=== PATIENT | male | born 1940 | race Caucasian/White ===

== ENCOUNTER 2016-09-09 13:38 | Observation (INO) | payer MEDICARE ==
[2016-09-09] MEDS ORDERED: Aspirin Low Dose CHEW TAB* 81 MG PO ONE (17:21)
--- NOTE | 2016-09-09 18:11 | RAD ---
INDICATION: Chest pain COMPARISON: September 07, 2007 TECHNIQUE: An AP portable view obtained at 1732 hours is submitted. FINDINGS: Bones/Soft Tissues: There are no acute bony findings. Cardiomediastinal: The cardiomediastinal silhouette is normal. Lungs: There are no infiltrates. Pleura: There are no pleural effusions. Other: None IMPRESSION: NO ACTIVE DISEASE.
[2016-09-09 18:23] LABS: Hematocrit 43 % (42-52); Hemoglobin 14.9 g/dl (14.0-18.0); Mean Corpuscular HGB Conc 35 g/dl (31-36); Mean Corpuscular Hemoglobin 32 pg (27-31); Mean Corpuscular Volume 92 fL (80-94); Mean Platelet Volume 7 um3 (7.4-10.4); Red Blood Count 4.64 10^6/ul (4.0-5.4); Red Cell Distribution Width 13 % (10.5-15)
[2016-09-09 18:45] LABS: Albumin 4.4 g/dL (3.2-5.2); BUN/Creatinine Ratio 18.4 (8-20); Calcium 9.7 mg/dL (8.6-10.3); EGFR African American 95.9 (>60); EGFR Non-African American 74.6 (>60); Globulin 2.4 g/dL (2-4); Potassium 4.3 mmol/L (3.5-5.0); Total Bilirubin 0.7 mg/dL (0.2-1.0); Total Protein 6.8 g/dL (6.4-8.9)
[2016-09-09] MEDS ORDERED: Acetaminophen TAB* 325 MG PO PRN (19:45)
[2016-09-09] MEDS ORDERED: Ondansetron INJ* 2 MG/ML VIAL IV PRN (19:45)
[2016-09-09] MEDS ORDERED: Atorvastatin* 20 MG TAB PO SCH (21:00)
[2016-09-09] MEDS: Heparin VIAL(*) 5000 UNITS/ML VIAL (FIVE THOUSAND) SUBCUT SCH (22:04)
--- NOTE | 2016-09-09 23:36 | HP ---
HISTORY AND PHYSICAL: DATE OF ADMISSION: 09/09/16 PRIMARY CARE PROVIDER: Dr. Ramirez. MY ATTENDING PHYSICIAN WHILE IN THE HOSPITAL: Dr. Tejinder Gottlieb * (report dictated by Adolfo Escobedo NP). CHIEF COMPLAINT: Chest pain. HISTORY OF PRESENT ILLNESS: Mr. Toney is a 76-year-old male patient who comes into the ER today stated that last month or so, he has been shoveling snow and he noticed that he has had chest discomfort on the left side. He thought it was musculoskeletal but what had happened again today when he was shoveling his driveway. He did not have any associated diaphoresis, nausea, or any shortness of breath. The patient states that he described the pain as dull ache. He has not had any recent fevers or chills. No coughing. He says the pain was not reproducible. Interestingly, he said he has been playing tennis and he has not had any discomfort like this and it is typically when he has been shoveling snow. He has had a history of two shoulder surgeries in the past. The patient states that he was concerned, called his primary, his primary has felt that he should be evaluated in the hospital. He was evaluated here and his concern this may represent acute coronary syndrome, so the hospitalist service was asked to evaluate for admission. PAST MEDICAL HISTORY: Significant for: 1. Hyperlipidemia. 2. Prostate cancer. PAST SURGICAL HISTORY: He has had: 1. Shoulder surgery. 2. Appendectomy. HOME MEDICATIONS: Include Crestor 10 mg p.o. daily. ALLERGIES TO MEDICATIONS: Include no known drug allergies. FAMILY HISTORY: His father did have heart disease and Parkinson's. SOCIAL HISTORY: He does not smoke. He occasionally drinks alcohol. He is . Surrogate decision maker is his daughter. REVIEW OF SYSTEMS: There is no documented fever. He denied having any significant weight change. There was no double vision. There is no ear discharge. No rhinorrhea. No sore throat. No thyroid enlargement. There is chest pain from my HPI. He denies having any orthopnea. Denies having any nocturnal dyspnea. There is no shortness of breath. No nausea, no vomiting. No dysuria, no frequency. No loss of consciousness. No pruritus, no skin ulcerations. Review of 14 systems completed, all others negative. PHYSICAL EXAMINATION GENERAL: At this time, Mr. Toney is a 76-year-old male patient who appears to be well-nourished and well-developed. He is sitting in the ER stretcher. He does not appear to be in any acute distress. VITAL SIGNS: Blood pressure 146/98 with a pulse of 74, respirations 20, O2 sat 95%, temperature 97.9. HEENT: Head is atraumatic, normocephalic. Eyes: EOMs intact. Sclerae anicteric. Throat: Oral mucosa appears to be moist. No oropharyngeal erythema. NECK: Supple. LUNGS: Clear to auscultation. No wheezes, rales, or rhonchi. HEART: Sounds S1, S2. Regular rate and rhythm. No murmurs, rubs, or gallops. ABDOMEN: Soft, flat, nontender. Bowel sounds present. EXTREMITIES: Pulses 2+ throughout. Able to move all extremities with 5/5 strength. NEUROLOGIC: The patient is awake, alert, and is oriented x3. Tongue midline. No gross focal deficits. SKIN: Grossly intact. DIAGNOSTIC STUDIES/LAB DATA: Today revealed a WBC of 5.0, RBC of 4.64, hemoglobin of 14.9, hematocrit of 43, platelet count of 202. Sodium was 137, potassium was 4.3, chloride of 103, bicarb 30, BUN 18, creatinine of 0.98, glucose 93, lactate 1.0, calcium is 9.7. Total bili 0.7, AST 17, ALT 17, alk phos 50. Troponin 0. The EKG showed a normal sinus rhythm at the rate of 69. There was no ST elevation. He did have a T-wave flattening in lead III, inversion in V1, and flat V2. No previous for comparison. Chest x-ray was reviewed by myself and did not appreciate any acute disease or infiltrate or effusions. The Radiology read it as no active disease. Old medical records were reviewed. ASSESSMENT AND PLAN: Mr. Toney is a 76-year-old male patient coming into the ER today with complaints of chest discomfort. Evaluation in the ED, this was concerned as this might represent acute coronary syndrome. Hospitalist service was asked to evaluate for admission. He will be admitted under observation status for: 1. Chest pain. At this point, I will go ahead and give the patient an aspirin. His symptoms are concerning because he does have more with exertion, he has been having with shoveling snow. So, I do think he deserves a stress test and unfortunately, he cannot do a treadmill stress test because he did pull his groin and this has been healing. So, we did order a chemical stress test, repeat EKG, troponin, lipid panel in the morning. He is on an aspirin and statin. He is chest pain free currently. We will monitor these. Should the stress test be abnormal and the troponin is elevated, obviously we will get input from cardiology. 2. Hyperlipidemia. We will check a lipid panel. He is on statin and will continue. 3. Prostate cancer. We will continue with his current medical regimen and follow his primary. 5. DVT prophylaxis. He is high risk and will be placed on heparin subcu. 6. Code status. He is a full code. 7. Fluids, electrolytes, nutrition. He can have a heart healthy diet. TIME SPENT: On this admission was 60 minutes, greater than half the time spent [id number] with the patient obtaining my history and physical, other half time spent going over the plan of care with the patient and implementing the plan of care. I did discuss the plan of care with my attending, Dr. Gottlieb; he is in agreement. ADOLFO ESCOBEDO NP CC: Dr. Ramirez * [id number]/[facility] #: [id number] [place]
[2016-09-10] MEDS ORDERED: CMCS: Melatonin (NF) 3 MG TAB PO PRN (00:19)
[2016-09-10] MEDS: Heparin VIAL(*) 5000 UNITS/ML VIAL (FIVE THOUSAND) SUBCUT SCH (05:35)
--- NOTE | 2016-09-10 05:54 | PTEDU ---
Patient Name: FREDERIC VAN REHANFREDERIC selected video: Cardiac Stress Tests to view on 09/10/2016 at 5:52:29 AM from [employer] _[id number]
[2016-09-10 06:29] LABS: Hematocrit 39 % (42-52); Hemoglobin 13.8 g/dl (14.0-18.0); Mean Corpuscular HGB Conc 35 g/dl (31-36); Mean Corpuscular Hemoglobin 32 pg (27-31); Mean Corpuscular Volume 91 fL (80-94); Mean Platelet Volume 8 um3 (7.4-10.4); Red Blood Count 4.32 10^6/ul (4.0-5.4); Red Cell Distribution Width 13 % (10.5-15)
[2016-09-10 06:43] LABS: BUN/Creatinine Ratio 18.7 (8-20); Calcium 9.1 mg/dL (8.6-10.3); EGFR African American 104.5 (>60); EGFR Non-African American 81.2 (>60); HDL Cholesterol 41.4 mg/dL; Potassium 3.8 mmol/L (3.5-5.0)
[2016-09-10 08:57] VITALS: BP 127/76
[2016-09-10] MEDS ORDERED: Aspirin Low Dose CHEW TAB* 81 MG PO SCH (09:00)
[2016-09-10] MEDS ORDERED: Aminophylline IV* 25 MG/ML 10 ML VIAL ONE (09:02)
[2016-09-10] MEDS ORDERED: Regadenoson* 0.4 MG/5 ML SYRINGE ONE (09:02)
--- NOTE | 2016-09-10 10:32 | RAD ---
Edited for charges. INDICATION: Chest pain COMPARISON: None. TECHNIQUE: 10.300 mCi of Tc-99m Myoview were administered IV. SPECT images of the heart were obtained. Later on the same day, 25.600 FINDINGS: Gated wall motion images were obtained at stress and demonstrate wall motion to be within normal limits. Calculated left ventricular ejection fraction is 74 % at stress. Estimated LEFT ventricular end diastolic volume is 60 mL. TID 0.8. Diaphragmatic attenuation noted. Based on review of the attenuation corrected and non corrected images the distribution of radiopharmaceutical within the myocardium on the stress and rest images is within normal limits. No fixed or reversible regions of hypoperfusion evident. IMPRESSION: No evidence for stress-induced ischemia or presence of an infarct. Normal range estimated LEFT ventricular ejection fraction and wall motion. ASSESSMENT: Low risk. Based on imaging criteria from ACC/AHA 2002 Guideline Update for the Management of Patients With Chronic Stable Angina Table 23. Noninvasive Risk Stratification. MTDD
--- NOTE | 2016-09-10 17:28 | PN ---
Hospitalist Progress Note . HOSPITALIST DISCHARGE NOTE: See dc instructions and summary by me. Patient stable for dc dc instructions reviewed with the patient at the bedside. DC patient home today.
--- NOTE | 2016-09-11 12:26 | DS ---
CC: Dr. Ramirez DISCHARGE SUMMARY: DATE OF ADMISSION: 09/09/16 DATE OF DISCHARGE: 09/10/16 STATUS DURING HOSPITALIZATION: Observation. PRIMARY CARE PROVIDER: Romeo Ramirez MD, [facility]. PRINCIPAL DISCHARGE DIAGNOSIS: Chest pain - noncardiac - status post chemical nuclear stress test s howing low risk pattern by ACC/AHA criteria. SECONDARY DIAGNOSES: 1. Hyperlipidemia. 2. History of prostate cancer. DISCHARGE MEDICATIONS: 1. Continue Crestor 10 mg by mouth daily. 2. Aspirin 81 mg by mouth daily. HISTORY OF PRESENT ILLNESS AND HOSPITAL COURSE: Please see the H and P by Adolfo Escobedo NP, under the supervision of Tejinder Gottlieb MD, on 09/09/16. In brief, Mr. Toney is pleasant and generally heal thy 76-year-old male who came to the emergency room with chest discomfort on his left side. There w as a concern that this was musculoskeletal, but when pain was reexperienced while shoveling his driv eway, he was concerned he might be having a heart attack. The pain was a dull ache. The patient di d not have any pulmonary symptoms. He never had a discomfort like this before and wanted to make arboleda re it was not coronary disease. The patient has had a history of 2 shoulder surgeries in the past a nd suspect it might alternatively be that. The patient was placed on telemetry under observation st at. He had serial troponins that were negative. He proceeded with a stress test that was chemica l because of his inability to exercise secondary to a groin pull. The patient had a low risk patter n with no significant perfusion defects noted. The patient was feeling well with no recurrent chest pain as telemetry did not show any evidence of arrhythmia and the patient's other labs were unremar kable. The patient was stable for discharge. The testing during the hospitalization were reviewed at the bedside. We talked about the relative merits of a baby aspirin and the patient is opting to take 81 mg aspirin daily along with his Crestor. He is going to follow up with Dr. Ramirez in the nex t 1 to 2 weeks. I told the patient to come back to the emergency room if he has any worrisome sympt oms including but not limited to chest pain, shortness of breath, lightheadedness, or any other worr isome symptoms and he said he will comply. TIME SPENT: Total time taken to discharge him was 40 minutes. Greater than half the time spent at the bedside going over the discharge instructions with the patient [id number]. [id number]/[facility] #: [id number]
--- NOTE | 2016-09-25 20:40 | ED ---
Gia Barraza Anna, scribed for Brenden Gregory MD on 09/09/16 at 1724 . HPI Chest Pain - HPI Summary HPI Summary: Patient is a 76 y/o male coming to [facility] presenting with sudden onset of CP that began this morning while he was shoveling snow. The symptoms spontaneously resolved, and he feels no pain currently. He reports similar symptoms one month ago that also resolved. Denies SOB, jaw/neck pain, diaphoresis, and nausea. His history is significant for hypercholesterolemia. He has not had a catheterization previously. He did not have any Aspirin today. - History of Current Complaint Chief Complaint: EDChestPainROMI Time Seen by Provider: 09/09/16 17:12 Hx Obtained From: Patient Onset/Duration: Started Hours Ago, Resolved Initial Severity: Moderate Current Severity: None Pain Intensity: 0 Pain Scale Used: 0-10 Numeric - Allergy/Home Medications Allergies/Adverse Reactions: Allergies Allergy/AdvReac Type Severity Reaction Status Date / Time No Known Allergies Allergy Verified 09/09/16 16:03 Home Medications: Home Medications Rosuvastatin (NF) [Crestor (NF)] 10 mg PO BEDTIME 09/09/16 [History Confirmed ] PMH/Surg Hx/FS Hx/Imm Hx Previously Healthy: Yes Infectious Disease History: No Infectious Disease History: Denies: Traveled Outside the [place] in Last 30 Days - Family History Known Family History: Positive: Cardiac Disease - Hx in father, onset not until past age 55 - Social History Occupation: Retired Alcohol Use: Daily Alcohol Amount: 1 glass with dinner Substance Use Type: Reports: None Smoking Status (MU): Never Smoked Tobacco Review of Systems Negative: Skin Diaphoresis Positive: Chest Pain Negative: Shortness Of Breath Negative: Abdominal Pain, Vomiting, Nausea Negative: dysuria, hematuria Negative: Myalgia, Edema Negative: Rash Neurological: Other - denies dizziness All Other Systems Reviewed And Are Negative: Yes Physical Exam - Summary Physical Exam Summary: Constitutional: Well-developed, Well-nourished, Alert. (-) Distressed Skin: Warm, Dry HENT: Normocephalic; Atraumatic Eyes: Conjunctiva normal Neck: Musculoskeletal ROM normal neck. (-) JVD, (-) Stridor, (-) Tracheal deviation Cardio: Rhythm regular, rate normal, Heart sounds normal; Intact distal pulses; The pedal pulses are 2+ and symmetric. Radial pulses are 2+ and symmetric. ~(-) Murmur Pulmonary/Chest wall: Effort normal. (-) Respiratory distress, (-) Wheezes, (-) Rales Abd: Soft, (-) Tenderness, ~(-) Distension, (-) Guarding, (-) Rebound Musculoskeletal: (-) Jameel. Minimal sternal tenderness. Symptoms not not exactly reproduced. Uncontrolled reflection. Lymph: (-) Cervical adenopathy Neuro: Alert, Oriented x3 Psych: Mood and affect Normal Triage Information Reviewed: Yes Vital Signs On Initial Exam: Initial Vitals Temp Pulse Resp BP Pulse Ox 96.8 F 74 20 145/76 100 09/09/16 13:40 09/09/16 13:40 09/09/16 13:40 09/09/16 13:40 09/09/16 13:40 Vital Signs Reviewed: Yes Diagnostics - Vital Signs Vital Signs Temp Pulse Resp BP Pulse Ox 09/09/16 16:02 97.9 F 72 18 135/79 98 09/09/16 14:45 97.7 F 75 20 100 09/09/16 13:40 96.8 F 74 20 145/76 100 - Laboratory Result Diagrams: 09/09/16 18:10 09/09/16 18:10 Lab Statement: Any lab studies that have been ordered have been reviewed, and results considered in the medical decision making process. - Radiology CXR Xray Interpretation: No Acute Changes Radiology Interpretation Completed By: ED Physician - EKG 1342 Cardiac Rate: NL - 69 bpm EKG Rhythm: Sinus Rhythm Ectopy: None EKG Interpretation: t-wave flattening in V2 Chest Pain Course/Dx - Course Assessment/Plan: Patient is a 76 y/o male coming to [facility] presenting with sudden onset of CP that began this morning while he was shoveling snow. The symptoms spontaneously resolved, and he feels no pain currently. He reports similar symptoms one month ago that also resolved. Denies SOB, jaw/neck pain, diaphoresis, and nausea. His history is significant for hypercholesterolemia. He has not had a catheterization previously. EKG reveals NSR at 69 bpm with t- wave flattening in V2. CXR reveals no acute disease. Discussed patient with Adolfo Camp (hospitalist) at 1921. Accepts patient for admission. - Diagnoses Provider Diagnoses: Chest pain, unspecified - Provider Notifications Discussed Care Of Patient With: Adolfo Camp (hospitalist) at 1921. Accepts patient for admission. Discharge - Discharge Plan Condition: Stable Disposition: ADMITTED TO [facility] documentation as recorded by the Gia ross Anna accurately reflects the service I personally performed and the decisions made by me, Brenden Gregory MD.
== END 2016-09-10 12:30 | disposition home or self-care (01) ==
LOC: ED 13:38 → MEDTELE 19:21
PROVIDERS: ADMIT Internal Medicine; ATTEND Internal Medicine
DX: R07.89 Other chest pain (principal); E78.5 Hyperlipidemia, unspecified; Z85.46 Personal history of malignant neoplasm of prostate; Z79.899 Other long term (current) drug therapy
CPT/HCPCS: 36415; 71010; 78452; 80048; 80053; 80061; 83036; 83605; 84484; 85025; 87040; 93005; 93017; 96372; 99284; A9270-GY; A9502; G0378; J0280; J1644; J2785